=== PATIENT | female | born 1960 | race Caucasian/White ===

== ENCOUNTER → 2019-08-16 | Outpatient (CLI) | payer OTHER ==
[2019-08-16 13:39] VITALS: BP 154/76; PULSE 86; TEMP 98.2; BMI 40.9
--- NOTE | 2019-08-16 14:09 | P.BASOAP ---
Subjective Progress Note Date: 08/16/19 Principal diagnosis: Morbid obesity 58-year-old female known to our service. The patient had lab and placed in 2003. We believe she has a 4 mL band. Preoperative weight 290. Currently at 231. Her lowest weight was 216. She has had complications from right knee surgery limiting her activity level. She was following up at [facility] for band adjustments for a while. She thought maybe her band was emptied however she still does have restriction. Her hypertension and diabetes have worsened slightly over the years. She has rare episodes of emesis. No heartburn. No night cough. Overall things she eats too much at that time. She has hungry. She is interested in band adjustment. Objective - Vital Signs Vital signs: Vital Signs Temp 98.2 F 08/16/19 13:37 Pulse 86 08/16/19 13:37 Resp BP 154/76 08/16/19 13:37 Pulse Ox Intake & Output 08/15/19 08/16/19 08/16/19 18:59 06:59 18:59 Weight 104.78 kg - Exam Abdomen: Soft, nontender, nondistended Assessment/Plan (1) Morbid obesity Narrative/Plan: Options discussed with the patient. She prefers that we had some fluid to her band. She is not interested in sleeve gastrectomy or bypass. Band accessed. 3.1 mL found. Will add 0.2 for a total of 3.3 mL. Follow-up 2 months. Plan: Date: 08/16/19 Initial Weight: Initial BMI: Current Weight: 104.78 kg Current BMI: 40.9 Type of Surgery: Total Volume in Band: 6.3 Previous Volume: Volume Removed: Volume Added: 3.2 Band Size:
== END | disposition home or self-care (01) ==
LOC: BARWHC3 12:59
PROVIDERS: ATTEND Surgery
DX: E66.01 Morbid (severe) obesity due to excess calories (principal); Z68.41 Body mass index [BMI] 40.0-44.9, adult
CPT/HCPCS: 99202